=== PATIENT | male | born 1965 | race Hispanic/Latino ===

== ENCOUNTER 2022-06-08 16:21 | Emergency (ER) | payer SELFPAY ==
[~2022-06-08] VITALS: Ht 175.3 cm; Wt 77.1 kg
[2022-06-08] MEDS ORDERED: DOXYCYCLINE HY100 MG PO (17:50)
== END 2022-06-08 18:20 | disposition home or self-care (01) ==
LOC: ED 16:21
DX: L03.211 Cellulitis of face (principal)
CPT/HCPCS: 99283